=== PATIENT | female | born 1945 | race Caucasian/White ===

== ENCOUNTER → 2018-01-31 | Outpatient (CLI) | payer MEDICARE ==
[~2018-01-31] MED LIST: GADOBENATE DIMEGLUMINE 1 ML IV ONE; IOPAMIDOL 370 MG/ML 200 ML INFUS..BTL INJ ONE; SODIUM CHLORIDE 0.9% 250ML 250 ML ONE; SODIUM CHLORIDE 0.9% 500ML 500 ML ONE; SODIUM CHLORIDE 0.9% 50ML 50 ML ONE
[2018-01-31 08:24] LABS: CREATININE, SERUM 1.2 mg/dL (0.6-1.1)
--- NOTE | 2018-01-31 12:59 | Diagnostic Imaging Report ---
EXAMINATION: MRI of the brain with and without contrast HISTORY: Lung cancer, staging, brain evaluation for tumor. COMPARISON: None. TECHNIQUE: Pre-contrast: Sagittal T2; axial T1-IR, T2, MPGR, DWI, FLAIR; Post-contrast: axial and coronal T1. Intravenous contrast: 16 mL of MultiHance. IMAGE QUALITY: Adequate. FINDINGS: Parenchyma: 1. Approximately 1.5 x 1.7 cm ring-enhancing lesion in the left lateral precentral gyrus, with surrounding vasogenic edema and minimal local mass effect. 2. A smaller 1 cm solid enhancing lesion is seen in the posterior/superior aspect of the left middle frontal gyrus, the lesion is very superficial and abutting the dura, however given surrounding vasogenic edema this most likely corresponds to an intraaxial additional metastases. 3. Severe confluent periventricular, rosales radiata and centrum semiovale white matter T2 hyperintense foci, consistent with chronic small vessel ischemic changes, involving the lor as well. 4. No mass or hemorrhage. No acute or chronic vascular insult. Skull: No abnormal signal intensity or enhancement. Major arteries: Expected flow voids present. Dural sinuses: Expected flow voids present. Ventricles: No hydrocephalus or displacement. Subarachnoid spaces: No abnormal signal intensity or enhancement. Brain volume: Normal for age. Foramen magnum: No mass, Chiari malformation, or basilar invagination. Sella: No gross mass. Paranasal/mastoid sinuses: Unremarkable. IMPRESSION: 1. There are 2 left frontal enhancing lesions, most likely metastatic in nature. 2. Severe confluent chronic microvascular ischemic changes. Signed by: Dr. Rika Garzon M.D. on 01/31/2018 12:56 PM
--- NOTE | 2018-01-31 15:43 | Diagnostic Imaging Report ---
PROCEDURE: CT scan of the chest WITH intravenous contrast, using standard protocol. TECHNIQUE: The chest was scanned utilizing a multidetector helical scanner from the lung apex through the level of the adrenal glands after the IV administration of 100 cc of Isovue 370. Coronal and sagittal multiplanar reformations were obtained. COMPARISON: None. INDICATIONS: HISTORY OF SMALL CELL LUNG CANCER, diagnosed in Nov, 2016 status post chemotherapy FINDINGS: Lines/tubes: None. Lungs and Airways: Mild to moderate bilateral centrilobular emphysematous changes predominantly in the upper lobes. 4 mm groundglass nodule in the left lower lobe (series 4, image 66, and sagittal image 105). No other nodules. No masses or consolidation. Linear opacities in the anterior left upper lobe, medial left upper lobe, anterolateral right upper lobe (sagittal images 25, 28 and 113), consistent with scarring. Airways are clear, without endobronchial lesions.. Pleura: The pleural spaces are clear. Heart and mediastinum: 2.2 x 1.4 cm hypodense lesion in the right thyroid lobe with nodular peripheral calcification (series 2, image 8). Heart size is normal. No pericardial effusion. Atherosclerotic calcification of the coronary arteries and thoracic aorta. Aorta is non-aneurysmal. Main pulmonary artery is normal in caliber. Lymph nodes: Enlarged left supraclavicular lymph node, which measures 2.1 cm in short axis (series 2, image 6 and coronal image 66). No mediastinal, hilar, or axillary adenopathy. Abdomen: Please see CT abdomen and pelvis performed same day for further detail. Bones: No aggressive lytic lesion. Generalized osteopenia. Soft tissues are unremarkable. IMPRESSION: 1. Enlarged left supraclavicular lymph node, which may be metastatic in this patient with history of small cell lung cancer. No other adenopathy or evidence of recurrent disease in the chest. 2. Nonspecific 4 mm groundglass nodule in the left lower lobe. No other nodules, masses, or consolidation. 3. 2.2 cm hypodense nodule in the right thyroid lobe. Recommend dedicated thyroid ultrasound for further evaluation. Aguilar Medrano M.D. Dictated by: Aguilar Medrano M.D. on 01/31/2018 at 15:47 Electronically approved by: Aguilar Medrano M.D. on 01/31/2018 at 15:47
--- NOTE | 2018-01-31 17:36 | Diagnostic Imaging Report ---
PROCEDURE: CT ABDOMEN AND PELVIS WITH CONTRAST TECHNIQUE: The abdomen and pelvis were scanned utilizing a multidetector helical scanner from the diaphragm to the lesser trochanter after the IV administration of 100 cc of Isovue 370 and the oral administration of water. Coronal and sagittal multiplanar reformations were obtained. COMPARISON: None. INDICATIONS: HISTORY OF SMALL CELL LUNG CANCER, diagnosed November 2016, status post chemotherapy FINDINGS: LOWER THORAX: Please see chest CT performed same date for further detail.. HEPATOBILIARY: Decrease attenuation of the hepatic parenchyma compared to the spleen, consistent with steatosis. Mild hepatomegaly, measuring 16.5 cm in the right midclavicular line. No focal hepatic lesions. No biliary ductal dilation. Gallbladder is unremarkable. SPLEEN: No splenomegaly. PANCREAS: No focal masses or ductal dilatation. ADRENALS: Mild thickening of the anterior limb of the left adrenal gland (series 2, image 56), without discrete focal lesion. Right adrenal gland is unremarkable. KIDNEYS/URETERS: No hydronephrosis, stones, or solid mass lesions. Mild bilateral cortical thinning. PELVIC ORGANS/BLADDER: Bladder is unremarkable. Heterogeneously enhancing 6.2 x 5.4 x 5.3 cm mass in the uterine body/fundus (series 2, image 97 and sagittal image 62). Partly calcified 1.4 x 1.6 x 1.5 cm partly exophytic lesion arising from the uterine body/lower uterine segment (series 2 image 23). No adnexal masses. PERITONEUM / RETROPERITONEUM: No free air or fluid. LYMPH NODES: No intra-abdominal, retroperitoneal, pelvic, or inguinal adenopathy. VESSELS: Celiac trunk, superior and inferior mesenteric, and bilateral renal arteries are patent. Portal, superior mesenteric, and splenic veins are patent. Atherosclerotic calcification of aorta, aortic branches, and iliac vessels. GI TRACT: No bowel dilation or evidence of obstruction. No pericolonic inflammatory changes. Descending and sigmoid colon diverticulosis, without surrounding inflammatory changes to suggest diverticulitis. No focal intrarenal lesion. Appendix is well identified and normal in caliber. BONES AND SOFT TISSUES: No aggressive lytic lesion. Generalized osteopenia. Degenerative disc changes, predominantly at L4-L5. Facet hypertrophy. L4-L5 and L5-S1. Soft tissues are grossly unremarkable. IMPRESSION: 1. no definite evidence of recurrence or metastatic disease in the abdomen or pelvis. 2. Mild hepatomegaly with fatty infiltration. No focal lesions. 3. Heterogeneously enhancing mass in the uterine body/fundus likely represents a large fibroid. Other partly calcified lesion in the lower uterine segment likely reflects a partly calcified fibroid. This may be further assessed with transvaginal ultrasound. 4. Descending and sigmoid colon diverticulosis without diverticulitis. Aguilar Medrano M.D. Dictated by: Aguilar Medrano M.D. on 01/31/2018 at 17:41 Electronically approved by: Aguilar Medrano M.D. on 01/31/2018 at 17:41
== END ==
LOC: CT 07:35
PROVIDERS: ATTEND Family Medicine
DX: R91.8 Other nonspecific abnormal finding of lung field (principal); Z85.118 Personal history of other malignant neoplasm of bronchus and lung
CPT/HCPCS: 36415; 70553; 71260; 74177; 82565; 84520; J7040; J7050; Q9967